=== PATIENT | female | born 1985 | race Caucasian/White ===

== ENCOUNTER 2017-06-13 15:31 | Emergency (ER) | payer OTHER ==
--- NOTE | 2017-06-13 16:04 | ED Physician Documentation ---
History of Present Illness - Stated complaint Stated Complaint: FATIGUE/VERTIGO - Chief complaint Chief Complaint: General - History obtained from History obtained from: Patient - History of Present Illness Timing: Other (several years) Pain level max: 0 Pain level now: 0 Improved by: phenteramine Worsened by: nothing - Additonal information Additional information: Patient is a 31-year-old female who presents to the emergency department with years of fatigue. She states that she found that eating a diet high in sugar would often help her fatigue, but led to excessive weight gain. She states that she is also tried phentermine for weight loss which did resolve her fatigue. She states that she has been seen by her doctor several times for the same with no cause found. She also states that sometimes she develops rashes on the bilateral upper and lower extremities. She also has a history of migraine headaches since she was young. Denies any childhood traumas. She does have a half sister with lupus. Has never seen an manager metrology or pipe fitter ammonia. Does not know if she has been worked up for autoimmune disease in the past. Patient was placed on Varsha for possible depression, though she states she does not feel depressed, has never been suicidal or homicidal, and does not feel depressed at home. Patient's has had a vasectomy and there is no concern for unintended . Patient also states that she felt like she had more energy when she was and did not have headaches or rashes at that time Review of Systems Ten Systems: 10 systems reviewed and negative Constitutional: denies: Fever, Chills Ears: denies: Ear pain Nose: denies: Rhinorrhea / runny nose, Congestion Throat: denies: Sore throat Cardiac: denies: Chest pain / pressure Respiratory: denies: Cough GI: denies: Abdominal Pain, Nausea, Vomiting Skin: denies: Rash Musculoskeletal: denies: Neck pain, Back pain Neurologic: denies: Focal weakness, Difficulty speaking, Headache PD PAST MEDICAL HISTORY - Past Medical History Past Medical History: Yes Neuro: Headache/migraine - Past Surgical History Past Surgical History: No - Allergies Allergies/Adverse Reactions: Allergies Allergy/AdvReac Type Severity Reaction Status Date / Time No Known Drug Allergies Allergy Verified 05/05/15 00:49 - Social History Does the pt smoke?: No Smoking Status: Never smoker Does the pt drink ETOH?: Yes Does the pt have substance abuse?: No - Immunizations Immunizations are current?: Yes - POLST Patient has POLST: No PD ED PE NORMAL - Vitals Vital signs reviewed: Yes - General General: Alert and oriented X 3, No acute distress, Well developed/nourished - HEENT HEENT: Atraumatic, PERRL, EOMI, Ears normal, Moist mucous membranes - Neck Neck: Supple, no meningeal sign, No bony TTP, No adenopathy - Cardiac Cardiac: RRR, Strong equal pulses - Respiratory Respiratory: No respiratory distress, Clear bilaterally - Abdomen Abdomen: Soft, Non tender - Back Back: No spinal TTP - Derm Derm: Warm and dry, No rash - Extremities Extremities: No edema, No calf tenderness / cord - Neuro Neuro: Alert and oriented X 3, tablet coater 2-12 intact, No motor deficit, No sensory deficit, Normal speech, Other (normal cerebellar tests) - Psych Psych: Normal mood, Normal affect Results - Vitals Vitals: Vital Signs - 24 hr 06/13/17 06/13/17 15:40 16:55 Temperature 37 C Heart Rate 98 76 Respiratory 22 16 Rate Blood Pressure 152/108 H 125/87 H O2 Saturation 97 100 Oxygen O2 Source Room air - Labs Labs: Laboratory Tests 06/13/17 06/13/17 06/13/17 16:08 16:08 16:08 WBC 7.1 RBC 4.51 Hgb 13.9 Hct 40.2 MCV 89.3 MCH 30.9 MCHC 34.7 RDW 13.4 Plt Count 170 MPV 10.3 Neut # 4.1 Lymph # 2.7 [place] # 0.3 Eos # 0.1 Baso # 0.0 Absolute Nucleated RBC 0.00 Nucleated RBCs 0.0 ESR Sodium 138 Potassium 3.6 Chloride 105 Carbon Dioxide 24 Anion Gap 9.0 BUN 10 Creatinine 0.9 Estimated GFR (MDRD) 73 L Glucose 123 H Calcium 9.2 Total Bilirubin 0.7 AST 49 H ALT 89 H Alkaline Phosphatase 41 L C-Reactive Protein < 1.0 Total Protein 7.2 Albumin 4.0 Globulin 3.2 Albumin/Globulin Ratio 1.3 Lipase 45 TSH 2.76 Free T4 0.78 Urine Color Urine Clarity Urine pH Ur Specific [place] Urine Protein Urine Glucose (UA) Urine Ketones Urine Occult Blood Urine Nitrite Urine Bilirubin Urine Urobilinogen Ur Leukocyte Esterase Ur Microscopic Review Urine Culture Comments Urine HCG, Qual 06/13/17 06/13/17 16:08 16:26 WBC RBC Hgb Hct MCV MCH MCHC RDW Plt Count MPV Neut # Lymph # [place] # Eos # Baso # Absolute Nucleated RBC Nucleated RBCs ESR 3 Sodium Potassium Chloride Carbon Dioxide Anion Gap BUN Creatinine Estimated GFR (MDRD) Glucose Calcium Total Bilirubin AST ALT Alkaline Phosphatase C-Reactive Protein Total Protein Albumin Globulin Albumin/Globulin Ratio Lipase TSH Free T4 Urine Color YELLOW Urine Clarity CLEAR Urine pH 6.0 Ur Specific [place] 1.010 Urine Protein NEGATIVE Urine Glucose (UA) NEGATIVE Urine Ketones NEGATIVE Urine Occult Blood NEGATIVE Urine Nitrite NEGATIVE Urine Bilirubin NEGATIVE Urine Urobilinogen 0.2 (NORMAL) Ur Leukocyte Esterase NEGATIVE Ur Microscopic Review NOT INDICATED Urine Culture Comments NOT INDICATED Urine HCG, Qual NEGATIVE PD MEDICAL DECISION MAKING - ED course Complexity details: reviewed results, re-evaluated patient, considered differential, d/w patient ED course: Patient is a 31-year-old female who presents to the emergency department with what appears to be a chronic long-standing fatigue as well as intermittent feelings of being rocked on a boat. There are no acute findings on laboratory testing today. No focal neurological deficits. Has had CT scans of the head in the past with no cause found. Possible that she is suffering from an autoimmune disease given her long-standing fatigue and intermittent rashes to the extremities. Would recommend that she follow-up closely with her doctor for further evaluation and care as well as possible referral to endocrinology and/or rheumatology. Patient counseled regarding signs and symptoms for which I believe and urgent re-evaluation would be necessary. Patient with good understanding of and agreement to plan and is comfortable going home at this time This document was made in part using voice recognition software. While efforts are made to proofread this document, sound alike and grammatical errors may occur. Departure - Departure Disposition: Home, Self Care Clinical Impression: Liver enzyme elevation Fatigue Qualifiers: Fatigue type: chronic, unspecified Qualified Code(s): R53.82 - Chronic fatigue , unspecified Condition: Good Instructions: ED Weakness UKO Follow-Up: ANA JOE [Primary Care Provider] - Within 1 week Comments: You may be suffering from an undiagnosed autoimmune or hormonal disease. You would likely benefit from a rheumatology and endocrine referral as well as further testing with your doctor, such as rheumatoid factor, KEI, anti-dsDNA, and complement levels. Anti-santos, ro and la antibodies may be useful as well. It is very important that you follow up for further evaluation, especially with a family history of lupus. You also have mild elevations of your liver enzymes, which is a non-specific finding, but needs follow up with your doctor. Your blood pressure was elevated today on check in to the emergency department. This does not mean that you have hypertension, it is a common phenomenon to check into the emergency department and have elevated blood pressure. I recommend that you see your primary care physician within the week to have it rechecked when you're feeling better. Discharge Date/Time: 06/13/17 16:45
[2017-06-13 16:16] LABS: BASOPHILS % (AUTO) 0.5 %; EOSINOPHILS # (AUTO) 0.1 10^3/uL (0.0-0.7); HCT - HEMATOCRIT 40.2 % (37.0-47.0); HGB - HEMOGLOBIN 13.9 g/dL (12.0-16.0); LYMPHOCYTES # (AUTO) 2.7 10^3/uL (1.5-3.5); LYMPHOCYTES % (AUTO) 37.7 %; MEAN CORPUSCULAR HEMOGLOBIN 30.9 pg (27.0-31.0); MEAN CORPUSCULAR HGB CONC 34.7 g/dL (32.0-36.0); MEAN CORPUSCULAR VOLUME 89.3 fL (81.0-99.0); MEAN PLATELET VOLUME 10.3 fL (7.9-10.8); MONOCYTES # (AUTO) 0.3 10^3/uL (0.0-1.0); MONOCYTES % (AUTO) 3.9 %; NEUTROPHILS # (AUTO) 4.1 10^3/uL (1.5-6.6); NEUTROPHILS % (AUTO) 56.9 %; RED BLOOD COUNT 4.51 10^6/uL (4.20-5.40); RED CELL DISTRIBUTION WIDTH 13.4 % (12.0-15.0); UNCORRECTED WHITE BLOOD COUNT 7.1 x10^3/uL; WHITE BLOOD COUNT 7.1 x10^3/uL (4.8-10.8)
[2017-06-13 16:30] LABS: BILIRUBIN,URINE NEGATIVE (NEGATIVE)
[2017-06-13 16:32] LABS: ALBUMIN/GLOBULIN RATIO 1.3 (1.0-2.2); BILIRUBIN,TOTAL 0.7 mg/dL (0.2-1.0); BUN - BLOOD UREA NITROGEN 10 mg/dL (6-20); CALCIUM 9.2 mg/dL (8.5-10.3); CARBON DIOXIDE - CO2 24 mmol/L (21-32); CHLORIDE 105 mmol/L (101-111); CREATININE 0.9 mg/dL (0.4-1.0); GFR - MDRD 73 (>89); GLUCOSE 123 mg/dL (70-100); LIPASE 45 U/L (22-51); POTASSIUM 3.6 mmol/L (3.5-5.0); SODIUM 138 mmol/L (135-145); TOTAL PROTEIN 7.2 g/dL (6.7-8.2)
[2017-06-13 16:34] LABS: HCG UR QUAL NEGATIVE; UA CHARGE (STRIP ONLY) YES; UR CULTURE IF IND NOT INDICATED
[2017-06-13 16:55] VITALS: BP 125/87
[2017-06-13 17:05] LABS: THYROID STIMULATING HORMONE 2.76 uIU/mL (0.34-5.60)
== END 2017-06-13 16:45 | disposition home or self-care (01) ==
LOC: ED 15:31
DX: R53.83 Other fatigue (principal); R74.8 Abnormal levels of other serum enzymes; R03.0 Elevated blood-pressure reading, without diagnosis of hypertension
CPT/HCPCS: 36415; 80053; 81001; 81003; 81025; 83690; 84439; 84443; 85025; 85651; 86140; 87086; 99283

== ENCOUNTER 2017-09-02 13:27 | Emergency (ER) | payer OTHER ==
[2017-09-02 13:44] VITALS: BP 104/68
[2017-09-02] MEDS ORDERED: LIDOCAINE 1% 2 ML VIAL ONE (16:32)
[2017-09-02] MEDS ORDERED: TETANUS/DIPHTHERIA/PERTUSSIS 0.5 ML SYRINGE IM ONE ×2 (16:40→16:48)
--- NOTE | 2017-09-02 16:42 | ED Physician Documentation ---
PD HPI LOWER EXT INJURY - Stated complaint Stated Complaint: KNEE LAC - Chief complaint Chief Complaint: Laceration - History obtained from History obtained from: Patient - History of Present Illness PD HPI LOW EXT INJURY LOCATION: Right, Knee Type of injury: Laceration Where injury occurred: Home Timing - onset: Today Timing - duration: Hours Timing - details: Abrupt onset, Still present Improved by: Rest Worsened by: Moving Associated symptoms: No: Weakness, Numbness, Tingling Similar symptoms before: Has not had sx before Recently seen: Not recently seen - Additional information Additional information: 31-year-old female was using some scissors at home when she stabbed herself in the knee inadvertently. She has 1/2 inch laceration over the knee. She is able to ambulate without difficulty. Review of Systems Constitutional: denies: Fever Respiratory: denies: Cough GI: denies: Vomiting : denies: Discharge Skin: reports: Laceration (s). denies: Rash Musculoskeletal: reports: Extremity pain. denies: Neck pain, Back pain PD PAST MEDICAL HISTORY - Past Medical History Neuro: Headache/migraine - Past Surgical History Past Surgical History: No - Present Medications Home Medications: Ambulatory Orders Medication Instructions Recorded Confirmed No Known Home Medications [No 09/02/17 09/02/17 Known Home Medications] - Allergies Allergies/Adverse Reactions: Allergies Allergy/AdvReac Type Severity Reaction Status Date / Time No Known Drug Allergies Allergy Verified 09/02/17 13:44 - Social History Does the pt smoke?: No Smoking Status: Never smoker Does the pt drink ETOH?: Yes Does the pt have substance abuse?: No - Immunizations Immunizations are current?: Yes - POLST Patient has POLST: No PD ED PE NORMAL - Vitals Vital signs reviewed: Yes (normal ) - General General: No acute distress, Well developed/nourished - HEENT HEENT: Atraumatic, PERRL - Respiratory Respiratory: No respiratory distress - Derm Derm: Normal color, Warm and dry, No rash - Extremities Extremities: No deformity, No edema, Other (There is a 1 cm laceration over the right lateral knee into the subcutaneous tissues does not appear to involve deeper structures the distal neurovascular components are intact the wound appears clean.) - Neuro Neuro: Alert and oriented X 3, No motor deficit, No sensory deficit, Normal speech Eye Opening: Spontaneous Motor: Obeys Commands Verbal: Oriented GCS Score: 15 - Psych Psych: Normal mood, Normal affect Results - Vitals Vitals: Vital Signs - 24 hr 09/02/17 13:40 Temperature 36.8 C Heart Rate 71 Respiratory 16 Rate Blood Pressure 104/68 O2 Saturation 99 Oxygen O2 Source Room air Procedures - Laceration (location) right knee Length in cm: 1 Wound type: Linear, Clean Tendon involvement: No: Tendon intact Anesthesia: Lidocaine 1% Wound Preparation: Hibiclens, Irrigated copiously NS, Wound explored, To the base Skin layer closure: Nylon, Interrupted, Size #-0 - enter number (4-0), Sutures - enter # (2) Other: Patient tolerated well, No complications, Neurovascular intact, Dressing applied, Tetanus booster given Complexity: Simple PD MEDICAL DECISION MAKING - ED course Complexity details: considered differential, d/w patient ED course: 31-year-old female with a 1 cm her laceration on her right knee is sutured. The patient does have some anxiety related to the suturing of this and she does pair Beasley with the patient in the room next to her. Departure - Departure Disposition: 01 Home, Self Care Clinical Impression: Laceration of right knee Qualifiers: Encounter type: initial encounter Qualified Code(s): S81.011A - Laceration without foreign body, right knee, initial encounter Condition: Stable Instructions: ED Laceration All Follow-Up: [facility] [Provider Group] Comments: Sutures out in 7-10 days.
[2017-09-02] MEDS ORDERED: BACITRACIN OINT TOP ONE (16:48)
== END 2017-09-02 16:56 | disposition home or self-care (01) ==
LOC: ED 13:27
DX: S81.011A Laceration without foreign body, right knee, initial encounter (principal); W26.8XXA Contact with other sharp object(s), not elsewhere classified, initial encounter; Y92.009 Unspecified place in unspecified non-institutional (private) residence as the place of occurrence of the external cause; Z23 Encounter for immunization
CPT/HCPCS: 12001; 90471; 90715; 99283; A9270

== ENCOUNTER 2017-09-15 12:26 | Emergency (ER) | payer OTHER ==
[2017-09-15 12:42] VITALS: BP 125/81
[2017-09-15] MEDS ORDERED: predniSONE 20 MG TABLET PO STA (13:09)
[2017-09-15] MEDS ORDERED: LORATADINE 10 MG TABLET PO STA (13:09)
--- NOTE | 2017-09-15 13:10 | ED Physician Documentation ---
History of Present Illness - Stated complaint Stated Complaint: HIVES - Chief complaint Chief Complaint: Allergic Rx - History obtained from History obtained from: Patient - History of Present Illness Timing: Other (She started a black and yellow tablet, after review of pill pictures we agreed with Macrobid for UTI symptoms little over a week ago. On the completion she started to develop hives, as it started on the hands and then moved to the trunk it is very itchy. She still has intermittent UTI symptoms. No fevers. No shortness of breath.) Review of Systems Constitutional: denies: Fever, Chills Nose: denies: Rhinorrhea / runny nose Throat: denies: Sore throat GI: denies: Abdominal Pain, Nausea, Vomiting PD PAST MEDICAL HISTORY - Past Medical History Past Medical History: Yes Neuro: Headache/migraine - Past Surgical History Past Surgical History: No - Present Medications Home Medications: Ambulatory Orders Medication Instructions Recorded Confirmed Ethinyl Estradiol/Drospirenone 1 tab DAILY 09/15/17 09/15/17 [Varsha 28 Tablet] Loratadine [Claritin] 10 mg PO DAILY #7 tablet 09/15/17 ZOLMitriptan [Zolmitriptan] 0 mg DAILY PRN 09/15/17 09/15/17 predniSONE [Deltasone] 60 mg PO DAILY 5 Days tablet 09/15/17 - Allergies Allergies/Adverse Reactions: Allergies Allergy/AdvReac Type Severity Reaction Status Date / Time No Known Drug Allergies Allergy Verified 09/15/17 12:42 - Social History Does the pt smoke?: No Smoking Status: Never smoker Does the pt drink ETOH?: Yes Does the pt have substance abuse?: No - Immunizations Immunizations are current?: Yes - POLST Patient has POLST: No PD ED PE NORMAL - Vitals Vital signs reviewed: Yes - General General: Alert and oriented X 3, No acute distress - HEENT HEENT: Pharynx benign - Cardiac Cardiac: RRR, No murmur - Respiratory Respiratory: No respiratory distress, Clear bilaterally - Abdomen Abdomen: Non tender - Derm Derm: Other (Mild hives on the trunk and neck, there is no evidence of rash on the palms.) - Neuro Neuro: Alert and oriented X 3, Normal speech Results - Vitals Vitals: Vital Signs - 24 hr 09/15/17 12:35 Temperature 36.8 C Heart Rate 89 Respiratory 18 Rate Blood Pressure 125/81 H O2 Saturation 96 Oxygen O2 Source Room air - Labs Labs: Laboratory Tests 09/15/17 13:46 Urine Color YELLOW Urine Clarity CLOUDY Urine pH 6.0 Ur Specific [place] 1.025 Urine Protein NEGATIVE Urine Glucose (UA) NEGATIVE Urine Ketones NEGATIVE Urine Occult Blood NEGATIVE Urine Nitrite NEGATIVE Urine Bilirubin NEGATIVE Urine Urobilinogen 0.2 (NORMAL) Ur Leukocyte Esterase NEGATIVE Ur Microscopic Review INDICATED Urine Culture Comments Not Reportable Urine HCG, Qual NEGATIVE Departure - Departure Disposition: 01 Home, Self Care Clinical Impression: Allergic reaction caused by a drug Qualifiers: Encounter type: initial encounter Qualified Code(s): T78.40XA - Allergy, unspecified, initial encounter Condition: Good Record reviewed to determine appropriate education?: Yes Instructions: ED Drug React Allergic Prescriptions: Loratadine [Claritin] 10 mg PO DAILY #7 tablet predniSONE [Deltasone] 60 mg PO DAILY 5 Days tablet Comments: Do not take Macrobid/nitrofurantoin for further UTIs. Return if worse. Follow- up with your doctor. Your blood pressure was elevated today on check into the emergency department. This does not mean that you have hypertension, it is a common phenomenon to come to the emergency department and have elevated blood pressure. I recommend that you see your primary care physician within the week to have it rechecked when you are feeling better.
[2017-09-15] MEDS ORDERED: LORATADINE 10 MG TABLET ONE (13:26)
[2017-09-15] MEDS ORDERED: predniSONE 20 MG TABLET ONE (13:26)
[2017-09-15 13:52] LABS: BILIRUBIN,URINE NEGATIVE (NEGATIVE)
[2017-09-15 13:55] LABS: HCG UR QUAL NEGATIVE; UA w/ MICROSCOPIC CHARGE YES
[2017-09-15 14:35] LABS: UR CULTURE IF IND NOT INDICATED
== END 2017-09-15 14:36 | disposition home or self-care (01) ==
LOC: ED 12:26
DX: L50.9 Urticaria, unspecified (principal); T37.8X5A Adverse effect of other specified systemic anti-infectives and antiparasitics, initial encounter; R03.0 Elevated blood-pressure reading, without diagnosis of hypertension
CPT/HCPCS: 81001; 81025; 99283; A9270; J7512; 81003; 87086

== ENCOUNTER 2017-09-19 10:59 | Emergency (ER) | payer OTHER ==
--- NOTE | 2017-09-19 12:32 | ED Physician Documentation ---
PD HPI HEENT - Stated complaint Stated Complaint: R EAR PAIN - Chief complaint Chief Complaint: Heent - History of Present Illness Severity Comments: severe Location: Right ear Associated symptoms: Rhinorrhea - Additional information Additional information: 31 year old f Presents to the emergency department with 1 day of right ear pain and decreased hearing. She has had URI symptoms for the past few days. She reports recentReaction and is taking steroid for this that she will Be finished taking tomorrow.Has had no fevers. Review of Systems Ten Systems: 10 systems reviewed and negative Constitutional: denies: Fever Ears: reports: Loss of hearing, Ear pain Nose: reports: Congestion Throat: denies: Sore throat Respiratory: denies: Cough Skin: reports: Reviewed and negative Neurologic: reports: Reviewed and negative PD PAST MEDICAL HISTORY - Past Medical History Past Medical History: Yes Neuro: Headache/migraine - Past Surgical History Past Surgical History: No - Present Medications Home Medications: Ambulatory Orders Medication Instructions Recorded Confirmed Ethinyl Estradiol/Drospirenone 1 tab DAILY 09/15/17 09/19/17 [Varsha 28 Tablet] Loratadine [Claritin] 10 mg PO DAILY #7 tablet 09/15/17 09/19/17 ZOLMitriptan [Zolmitriptan] 0 mg DAILY PRN 09/15/17 09/19/17 predniSONE [Deltasone] 60 mg PO DAILY 5 Days tablet 09/15/17 09/19/17 Amoxicillin 875 mg PO BID 10 Days #20 tablet 09/19/17 traMADol [Ultram] 50 mg PO Q6H PRN #7 tablet 09/19/17 - Allergies Allergies/Adverse Reactions: Allergies Allergy/AdvReac Type Severity Reaction Status Date / Time nitrofurantoin Allergy Hives Verified 09/19/17 12:40 [From Macrobid] - Social History Does the pt smoke?: No Smoking Status: Never smoker Does the pt drink ETOH?: Yes Does the pt have substance abuse?: No - Immunizations Immunizations are current?: Yes - POLST Patient has POLST: No PD ED PE NORMAL - Vitals Vital signs reviewed: Yes - General General: Alert and oriented X 3, No acute distress - HEENT HEENT: PERRL - Neck Neck: Supple, no meningeal sign - Cardiac Cardiac: RRR, No murmur - Respiratory Respiratory: Clear bilaterally - Abdomen Abdomen: Soft, Non tender, Non distended - Derm Derm: Warm and dry - Neuro Neuro: Alert and oriented X 3 PD ED PE EXPANDED - HEENT HEENT: R TM red, R TM dull, R TM bulging Results - Vitals Vitals: Vital Signs - 24 hr 09/19/17 09/19/17 11:03 12:49 Temperature 36.9 C Heart Rate 75 84 Respiratory 16 18 Rate Blood Pressure 114/78 120/80 O2 Saturation 100 98 Oxygen O2 Source Room air PD MEDICAL DECISION MAKING - ED course ED course: 31 year old f with right otitis media. amoxicillin, return precautions and follow up care reviewed. Departure - Departure Disposition: Home, Self Care Clinical Impression: Otitis media Qualifiers: Otitis media type: unspecified Chronicity: acute Qualified Code(s): H66.90 - Otitis media, unspecified, unspecified ear Condition: Good Instructions: ED Otitis Media Acute Adult Follow-Up: [facility] [Provider Group] Prescriptions: Amoxicillin 875 mg PO BID 10 Days #20 tablet traMADol [Ultram] 50 mg PO Q6H PRN #7 tablet PRN Reason: pain Comments: You have an ear infection. Take all of your antibiotics until they are gone. Follow-up with your primary care doctor later this week to ensure that your symptoms are getting better. You should take [id number] Tylenol and ibuprofen for your pain. You were given a small prescription of pain medications to use if that is not enough. Return to the emergency department if you have severe headache, weakness, numbness. Do not drink alcohol or drive while on narcotic pain medicine. Note that many narcotic pain relievers also contain tylenol/acetaminophen. Please ensure that your total dose of acetaminophen from all sources does not exceed 3 grams (3000mg) per day. You may constipated on this medication, take a stool softener such as "Colace" twice a day while you are on it. Also recommend a [id number] laxative such as senna or MiraLAX any day that you do not have a bowel movement. If you received narcotic pain medication in the emergency department, do not drive or operate machinery for the next 24 hours. Discharge Date/Time: 09/19/17 13:05
[2017-09-19 12:50] VITALS: BP 120/80
== END 2017-09-19 13:05 | disposition home or self-care (01) ==
LOC: ED 10:59
DX: H66.91 Otitis media, unspecified, right ear (principal)
CPT/HCPCS: 99283

== ENCOUNTER 2017-10-01 14:46 | Outpatient (CLI) | payer OTHER | END 2017-10-01 14:47 | disposition home or self-care (01) | LOC: SC 14:46 | PROVIDERS: ATTEND Specialist | DX: G47.30 Sleep apnea, unspecified (principal); R53.83 Other fatigue; E66.9 Obesity, unspecified; R06.83 Snoring; G47.00 Insomnia, unspecified | CPT/HCPCS: 99205; 99212 ==

== ENCOUNTER 2017-12-03 21:55 | Outpatient (CLI) | payer OTHER | END 2017-12-03 21:56 | disposition home or self-care (01) | LOC: SC 21:55 | PROVIDERS: ATTEND Specialist | DX: G47.30 Sleep apnea, unspecified (principal) | CPT/HCPCS: 95810 ==